=== PATIENT | female | born 1930 | race Asian ===

== ENCOUNTER 2016-06-30 09:39 | Inpatient (IN) | payer MEDICARE, MEDICAID ==
[~2016-06-30] VITALS: Ht 142.2 cm; Wt 50.4 kg
[~2016-06-30 09:39] MED LIST: ACET-784 PO; AMLO-512 PO; ATOR40TA71 PO; AUD NEB; B CO1CAP4 PO; CACARB500 PO; DEXT1DRO8 OU; DSS100 PO; FLUT1BLS PO; FURO-152 PO; HYDR-3965 PO; MECL-111 PO; MOM30 PO; ONDA4 PO; PANT40TA25 PO; VITAD1000 PO
[2016-06-30 10:11] LABS: BASOPHILS # (AUTO) 0.02 K/uL (0.00-0.20); BASOPHILS % (AUTO) 0.2 % (0.0-2.0); EOSINOPHILS % (AUTO) 1.15 % (1.0-6.0); HEMATOCRIT 31.8 % (36-46); HEMOGLOBIN 10.8 g/dL (12.0-16.0); LYMPHOCYTES # (AUTO) 1.8 K/uL (1.0-4.8); LYMPHOCYTES % (AUTO) 19.2 % (22.0-44.0); MEAN CORPUSCULAR HEMOGLOBIN 27.5 pg (26.0-34.0); MEAN CORPUSCULAR HGB CONC 33.9 G/dL (31.0-37.0); MEAN CORPUSCULAR VOLUME 81 fL (80-100); MONOCYTES # (AUTO) 0.5 K/uL (0.1-1.0); MONOCYTES % (AUTO) 5.5 % (2.0-9.0); NEUTROPHILS # (AUTO) 6.7 K/uL (1.8-7.7); PLATELET COUNT (AUTO) 233 K/uL (150-450); RED BLOOD CELL COUNT(AUTO) 3.92 MIL/uL (4.00-5.20); RED CELL DISTRIBUTION WIDTH 16.7 % (11.5-14.5); WHITE BLOOD COUNT (AUTO) 9.1 K/uL (4.5-11.0)
[2016-06-30 10:26] LABS: ALANINE AMINOTRANSFERASE 25 U/L (12-78); ALBUMIN 3.3 g/dL (3.4-5.0); ANION GAP 14 mmol/L (8-16); ASPARTATE AMINOTRANSFERASE 22 U/L (15-37); BILIRUBIN,TOTAL 0.6 mg/dL (0.1-1.0); CALCIUM, TOTAL 9.8 mg/dL (8.8-10.5); CARBON DIOXIDE 26 mmol/L (22-29); CHLORIDE 93 mmol/L (98-107); CREATINE KINASE, TOTAL 44 U/L (26-192); CREATININE 3.08 mg/dL (0.60-1.30); GLOMERULAR FILTR. RATE CALC 14 mL/min (>60); POTASSIUM 3.5 mmol/L (3.5-5.1); SODIUM SERUM 133 mmol/L (136-145); TOTAL PROTEIN, SERUM 9.1 g/dL (6.4-8.2)
[2016-06-30 10:28] LABS: UREA NITROGEN, BLOOD 102 mg/dL (7-18)
[2016-06-30 10:41] LABS: B-TYPE NATRIURETIC PEPTIDE 87 pg/mL (0-100)
[2016-06-30 11:11] LABS: GLUCOSE, URINE (UA) NEGATIVE (NEGATIVE); KETONES,URINE NEGATIVE (NEGATIVE); LEUKOCYTE ESTERASE ,URINE SMALL (NEGATIVE); OCCULT BLOOD,URINE SMALL (NEGATIVE); PROTEIN,URINE SEE CONFIRM (NEGATIVE)
[2016-06-30 11:14] LABS: ADD UA MICROSCOPIC YES; APPEARANCE,URINE HAZY (CLEAR)
[2016-06-30 11:18] LABS: SQUAMOUS EPITHELIAL CELL,UR Rare /LPF (None Seen)
[2016-06-30 11:19] LABS: SULFOSALICYLIC ACID,URINE 3+ (Negative)
[2016-06-30] MEDS ORDERED: ACETAMINOPHEN 325 MG TABLET PO PRN (13:00)
[2016-06-30] MEDS ORDERED: SODIUM CHLORIDE 0.9% 1,000 ML IV ONE (13:45)
[2016-06-30 14:16] LABS: GLUCOSE,POINT OF CARE 86 MG/DL (70-110)
[2016-06-30 14:56] VITALS: BP 133/70
[2016-06-30 15:33] VITALS: BP 130/63
[2016-06-30] MEDS ORDERED: ALBUTEROL SULFATE 2.5 MG/0.5 ML NEB SOLUTION NEB PRN (18:30)
[2016-06-30] MEDS ORDERED: ONDANSETRON HCL 4 MG TABLET PO PRN (18:30)
[2016-06-30] MEDS ORDERED: MAGNESIUM HYDROXIDE SUSPENSION 30 ML UDCUP PO PRN (18:30)
[2016-06-30] MEDS ORDERED: DOCUSATE SODIUM 100 MG CAPSULE PO PRN (18:30)
[2016-06-30] MEDS ORDERED: DEXTRAN 70 0.1%/HYPROMELL 0.3% 0.9 ML OPHTHALMIC SOLUTION [PF] OU PRN (18:30)
[2016-06-30] MEDS ORDERED: HYDROCODONE/ACETAMINOPHEN 5-325 MG TABLET PO PRN (18:30)
[2016-06-30 20:06] VITALS: BP 127/61
[2016-06-30] MEDS: ATORVASTATIN CALCIUM 10 MG TABLET PO SCH (20:38)
[2016-06-30] MEDS: HEPARIN SODIUM,PORCINE 5,000 UNITS/ML VIAL SQ SCH (20:39)
[2016-06-30 22:07] LABS: APPEARANCE,URINE CLOUDY (CLEAR); GLUCOSE, URINE (UA) NEGATIVE (NEGATIVE); KETONES,URINE NEGATIVE (NEGATIVE); LEUKOCYTE ESTERASE ,URINE TRACE (NEGATIVE); OCCULT BLOOD,URINE SMALL (NEGATIVE); PROTEIN,URINE SEE CONFIRM (NEGATIVE)
[2016-06-30 22:19] LABS: RBC,URINE 0-2 /HPF (0-2); WBC,URINE 0-2 /HPF (0-5)
[2016-06-30 22:22] LABS: SULFOSALICYLIC ACID,URINE 2+ (Negative)
[2016-07-01 00:04] VITALS: BP 152/78
[2016-07-01 04:15] VITALS: BP 149/67
[2016-07-01 06:50] LABS: BASOPHILS % (AUTO) 0.2 % (0.0-2.0); EOSINOPHILS % (AUTO) 1.6 % (1.0-6.0); HEMATOCRIT 27.5 % (36-46); LYMPHOCYTES # (AUTO) 1.3 K/uL (1.0-4.8); LYMPHOCYTES % (AUTO) 16.8 % (22.0-44.0); MEAN CORPUSCULAR HEMOGLOBIN 27.3 pg (26.0-34.0); MEAN CORPUSCULAR HGB CONC 32.7 G/dL (31.0-37.0); MEAN CORPUSCULAR VOLUME 84 fL (80-100); MONOCYTES # (AUTO) 0.5 K/uL (0.1-1.0); MONOCYTES % (AUTO) 7.3 % (2.0-9.0); NEUTROPHILS # (AUTO) 5.5 K/uL (1.8-7.7); NEUTROPHILS % (AUTO) 74.1 % (40.0-70.0); PLATELET COUNT (AUTO) 212 K/uL (150-450); RED BLOOD CELL COUNT(AUTO) 3.29 MIL/uL (4.00-5.20); RED CELL DISTRIBUTION WIDTH 16.2 % (11.5-14.5); WHITE BLOOD COUNT (AUTO) 7.4 K/uL (4.5-11.0)
[2016-07-01 07:19] LABS: IRON, SERUM 45 mcg/dL (50-175); TOTAL IRON BINDING CAPACITY 189 mcg/dL (250-450)
[2016-07-01 07:25] LABS: ALANINE AMINOTRANSFERASE 17 U/L (12-78); ALBUMIN 2.8 g/dL (3.4-5.0); ANION GAP 11 mmol/L (8-16); ASPARTATE AMINOTRANSFERASE 17 U/L (15-37); BILIRUBIN,TOTAL 0.6 mg/dL (0.1-1.0); CARBON DIOXIDE 25 mmol/L (22-29); CHLORIDE 99 mmol/L (98-107); CREATINE KINASE, TOTAL 36 U/L (26-192); CREATININE 2.79 mg/dL (0.60-1.30); GLOMERULAR FILTR. RATE CALC 16 mL/min (>60); PHOSPHORUS 5.5 mg/dL (2.5-4.9); POTASSIUM 3.9 mmol/L (3.5-5.1); SODIUM SERUM 135 mmol/L (136-145); THYROID STIMULATING HORMONE 0.44 uIU/mL (0.36-3.74); TOTAL PROTEIN, SERUM 7.6 g/dL (6.4-8.2); UREA NITROGEN, BLOOD 90 mg/dL (7-18)
[2016-07-01 07:42] VITALS: BP 144/73
[2016-07-01] MEDS: VITAMIN B COMP/VIT C/FOLIC ACID CAPSULE PO SCH (08:03)
[2016-07-01] MEDS: PANTOPRAZOLE SODIUM 40 MG DR TABLET PO SCH (08:03)
[2016-07-01] MEDS: FLUTICASONE/VILANTEROL 200-25 MCG/INH INHALER [14] IH SCH (08:03)
[2016-07-01] MEDS: CALCIUM CARBONATE 500 MG CHEWABLE TABLET PO SCH (08:04)
[2016-07-01] MEDS: CHOLECALCIFEROL (VIT D3) 1,000 UNITS TABLET PO SCH (08:04)
[2016-07-01] MEDS: EPOETIN ALFA 10,000 UNITS/ML VIAL SQ SCH (08:05)
[2016-07-01] MEDS: HEPARIN SODIUM,PORCINE 5,000 UNITS/ML VIAL SQ SCH ×2 (08:05→21:09)
[2016-07-01 08:59] LABS: VITAMIN B12 LEVEL 599 pg/mL (211-911)
[2016-07-01] MEDS: SODIUM CHLORIDE 0.9% 1,000 ML IV SCH (09:16)
[2016-07-01 11:35] VITALS: BP 127/66
[2016-07-01 15:07] VITALS: BP 143/69
[2016-07-01] MEDS: ACETAMINOPHEN 325 MG TABLET PO PRN (15:33)
[2016-07-01 19:47] VITALS: BP 142/71
[2016-07-01] MEDS: ATORVASTATIN CALCIUM 10 MG TABLET PO SCH (21:00)
[2016-07-01] MEDS: AmLODIPine BESYLATE 2.5 MG TABLET PO SCH (21:01)
[2016-07-02 00:02] VITALS: BP 149/66
[2016-07-02] MEDS: SODIUM CHLORIDE 0.9% 1,000 ML IV SCH (04:29)
[2016-07-02 05:58] VITALS: BP 142/59
[2016-07-02 06:21] LABS: ALBUMIN 2.6 g/dL (3.4-5.0); BILIRUBIN,TOTAL 0.5 mg/dL (0.1-1.0); CALCIUM, TOTAL 8.4 mg/dL (8.8-10.5); CREATININE 2.7 mg/dL (0.60-1.30); MAGNESIUM 2.1 mg/dL (1.80-2.40); PHOSPHORUS 4.7 mg/dL (2.5-4.9); TOTAL PROTEIN, SERUM 7.2 g/dL (6.4-8.2)
[2016-07-02 06:35] LABS: BASOPHILS % (AUTO) 0.5 % (0.0-2.0); EOSINOPHILS % (AUTO) 0.7 % (1.0-6.0); HEMATOCRIT 25.9 % (36-46); HEMOGLOBIN 8.5 g/dL (12.0-16.0); LYMPHOCYTES # (AUTO) 1.2 K/uL (1.0-4.8); LYMPHOCYTES % (AUTO) 17.2 % (22.0-44.0); MEAN CORPUSCULAR HEMOGLOBIN 27.3 pg (26.0-34.0); MEAN CORPUSCULAR HGB CONC 32.7 G/dL (31.0-37.0); MEAN CORPUSCULAR VOLUME 84 fL (80-100); MONOCYTES # (AUTO) 0.5 K/uL (0.1-1.0); MONOCYTES % (AUTO) 7.4 % (2.0-9.0); NEUTROPHILS # (AUTO) 5.1 K/uL (1.8-7.7); NEUTROPHILS % (AUTO) 74.2 % (40.0-70.0); PLATELET COUNT (AUTO) 200 K/uL (150-450); RED CELL DISTRIBUTION WIDTH 15.8 % (11.5-14.5); WHITE BLOOD COUNT (AUTO) 6.8 K/uL (4.5-11.0)
[2016-07-02 07:50] VITALS: BP 151/68
[2016-07-02] MEDS: FLUTICASONE/VILANTEROL 200-25 MCG/INH INHALER [14] IH SCH (09:49)
[2016-07-02] MEDS: VITAMIN B COMP/VIT C/FOLIC ACID CAPSULE PO SCH (09:50)
[2016-07-02] MEDS: PANTOPRAZOLE SODIUM 40 MG DR TABLET PO SCH (09:51)
[2016-07-02] MEDS: CALCIUM CARBONATE 500 MG CHEWABLE TABLET PO SCH (09:51)
[2016-07-02] MEDS: CHOLECALCIFEROL (VIT D3) 1,000 UNITS TABLET PO SCH (09:52)
[2016-07-02] MEDS: HEPARIN SODIUM,PORCINE 5,000 UNITS/ML VIAL SQ SCH ×2 (09:52→20:42)
[2016-07-02] MEDS: ACETAMINOPHEN 325 MG TABLET PO PRN ×3 (11:00→22:35)
[2016-07-02 11:23] VITALS: BP 125/48
[2016-07-02] MEDS: MUPIROCIN CALCIUM 2% 22 GM OINTMENT NASAL SCH ×2 (11:47→20:42)
[2016-07-02] MEDS: CefTRIAXone 1 GM/DEXTROSE 50 ML IV SCH (11:47)
[2016-07-02 16:05] VITALS: BP 126/61
[2016-07-02 20:00] VITALS: BP 147/62
[2016-07-02] MEDS: AmLODIPine BESYLATE 2.5 MG TABLET PO SCH (20:42)
[2016-07-02] MEDS: ATORVASTATIN CALCIUM 10 MG TABLET PO SCH (20:42)
[2016-07-03 00:15] VITALS: BP 139/67
[2016-07-03] MEDS: SODIUM CHLORIDE 0.9% 1,000 ML IV SCH (00:29)
[2016-07-03 04:59] VITALS: BP 123/67
[2016-07-03 07:14] VITALS: BP 134/64
[2016-07-03 07:50] LABS: BASOPHILS % (AUTO) 0.1 % (0.0-2.0); EOSINOPHILS % (AUTO) 1.5 % (1.0-6.0); HEMATOCRIT 26.3 % (36-46); HEMOGLOBIN 8.6 g/dL (12.0-16.0); LYMPHOCYTES # (AUTO) 0.9 K/uL (1.0-4.8); LYMPHOCYTES % (AUTO) 12.5 % (22.0-44.0); MEAN CORPUSCULAR HEMOGLOBIN 27.1 pg (26.0-34.0); MEAN CORPUSCULAR HGB CONC 32.6 G/dL (31.0-37.0); MEAN CORPUSCULAR VOLUME 83 fL (80-100); MONOCYTES # (AUTO) 0.4 K/uL (0.1-1.0); NEUTROPHILS # (AUTO) 5.7 K/uL (1.8-7.7); NEUTROPHILS % (AUTO) 80.9 % (40.0-70.0); PLATELET COUNT (AUTO) 195 K/uL (150-450); RED BLOOD CELL COUNT(AUTO) 3.16 MIL/uL (4.00-5.20); RED CELL DISTRIBUTION WIDTH 15.9 % (11.5-14.5); WHITE BLOOD COUNT (AUTO) 7.1 K/uL (4.5-11.0)
[2016-07-03 08:19] LABS: ALBUMIN 2.5 g/dL (3.4-5.0); BILIRUBIN,TOTAL 0.3 mg/dL (0.1-1.0); CALCIUM, TOTAL 8.8 mg/dL (8.8-10.5); CREATININE 2.5 mg/dL (0.60-1.30); MAGNESIUM 2.1 mg/dL (1.80-2.40); POTASSIUM 3.9 mmol/L (3.5-5.1); TOTAL PROTEIN, SERUM 7.3 g/dL (6.4-8.2)
[2016-07-03] MEDS: FLUTICASONE/VILANTEROL 200-25 MCG/INH INHALER [14] IH SCH (08:31)
[2016-07-03] MEDS: CALCIUM CARBONATE 500 MG CHEWABLE TABLET PO SCH (08:32)
[2016-07-03] MEDS: CHOLECALCIFEROL (VIT D3) 1,000 UNITS TABLET PO SCH (08:32)
[2016-07-03] MEDS: ACETAMINOPHEN 325 MG TABLET PO PRN (08:32)
[2016-07-03] MEDS: PANTOPRAZOLE SODIUM 40 MG DR TABLET PO SCH (08:32)
[2016-07-03] MEDS: MUPIROCIN CALCIUM 2% 22 GM OINTMENT NASAL SCH (08:32)
[2016-07-03] MEDS: VITAMIN B COMP/VIT C/FOLIC ACID CAPSULE PO SCH (08:32)
[2016-07-03] MEDS: HEPARIN SODIUM,PORCINE 5,000 UNITS/ML VIAL SQ SCH (08:33)
[2016-07-03] MEDS: EPOETIN ALFA 10,000 UNITS/ML VIAL SQ SCH (08:33)
[2016-07-03] MEDS ORDERED: DOCUSATE SODIUM 100 MG CAPSULE PO SCH (09:00)
[2016-07-03 10:58] VITALS: BP 132/63
[2016-07-03] MEDS: CefTRIAXone 1 GM/DEXTROSE 50 ML IV SCH (11:38)
[2016-07-03] MEDS ORDERED: CEFX1I IV (12:27)
[2016-07-03] MEDS ORDERED: PANT40TA25 PO (12:29)
[2016-07-03] MEDS ORDERED: FOLI1CAP2 PO (12:30)
[2016-07-03] MEDS ORDERED: MUPI1OIN5 NASAL (12:30)
[2016-07-03] MEDS ORDERED: EPOE4000 SQ (12:34)
[2016-07-03] MEDS ORDERED: ATORVASTATIN CALCIUM 10 MG TABLET PO SCH (21:00)
== END 2016-07-03 15:30 | DRG 682 ==
LOC: EMS 09:41 → 5S 12:58
PROVIDERS: ADMIT Internal Medicine Geriatric Medicine; ATTEND Internal Medicine Geriatric Medicine
DX: N17.9 Acute kidney failure, unspecified (principal); E43 Unspecified severe protein-calorie malnutrition; N39.0 Urinary tract infection, site not specified; S12.110A Anterior displaced Type II dens fracture, initial encounter for closed fracture; E87.1 Hypo-osmolality and hyponatremia; J84.10 Pulmonary fibrosis, unspecified; E86.0 Dehydration; J45.909 Unspecified asthma, uncomplicated; I95.1 Orthostatic hypotension; D64.9 Anemia, unspecified; J44.9 Chronic obstructive pulmonary disease, unspecified; H40.9 Unspecified glaucoma; M10.9 Gout, unspecified; I12.9 Hypertensive chronic kidney disease with stage 1 through stage 4 chronic kidney disease, or unspecified chronic kidney disease; E78.5 Hyperlipidemia, unspecified; I25.10 Atherosclerotic heart disease of native coronary artery without angina pectoris; E11.22 Type 2 diabetes mellitus with diabetic chronic kidney disease; E03.9 Hypothyroidism, unspecified; I49.5 Sick sinus syndrome; M06.9 Rheumatoid arthritis, unspecified; E55.9 Vitamin D deficiency, unspecified; M47.9 Spondylosis, unspecified; N18.4 Chronic kidney disease, stage 4 (severe); W19.XXXA Unspecified fall, initial encounter; B96.20 Unspecified Escherichia coli [E. coli] as the cause of diseases classified elsewhere; Z95.0 Presence of cardiac pacemaker; Z98.61 Coronary angioplasty status; Z88.0 Allergy status to penicillin; Z22.322 Carrier or suspected carrier of Methicillin resistant Staphylococcus aureus; Z86.73 Personal history of transient ischemic attack (TIA), and cerebral infarction without residual deficits; Z90.49 Acquired absence of other specified parts of digestive tract; Z68.24 Body mass index [BMI] 24.0-24.9, adult; Z91.81 History of falling; Y93.89 Activity, other specified; Y92.89 Other specified places as the place of occurrence of the external cause; Y99.8 Other external cause status
CPT/HCPCS: 51701; 70450; 72125; 76770; 82306; 82570; 82607; 82746; 82962; 83036; 83540; 83550; 83735; 84100; 84300; 84439; 84443; 84540; 87081; 87086; 93005; 93306; 96360; 97161; 99285; J0696; J0885; J1644; J7030

== ENCOUNTER 2016-11-04 12:35 | Inpatient (IN) | payer MEDICARE, MEDICAID ==
[~2016-11-04] VITALS: Ht 142.2 cm; Wt 49.5 kg
[~2016-11-04 12:35] MED LIST changes: -ACET-784 PO; -ATOR40TA71 PO; +BISA10S PR; -FURO-152 PO; -HYDR-3965 PO; +IPRNEB IH; +MACR100 PO; +MUPI1OIN5 NASAL; +NACL1 PO; -ONDA4 PO; +ZOLP5 PO
[2016-11-04 12:52] LABS: GLUCOSE,POINT OF CARE 120 MG/DL (70-110)
[2016-11-04] MEDS ORDERED: HYDR-309 PO (12:56)
[2016-11-04] MEDS ORDERED: ATOR10TA84 PO (12:58)
[2016-11-04] MEDS ORDERED: ONDA4 PO (12:58)
[2016-11-04] MEDS ORDERED: ACET325C PO (12:58)
[2016-11-04] MEDS ORDERED: FURO20 PO (12:59)
[2016-11-04 13:47] LABS: HEMATOCRIT 27.9 % (36-46); HEMOGLOBIN 9.1 g/dL (12.0-16.0); MEAN CORPUSCULAR HEMOGLOBIN 25.4 pg (26.0-34.0); MEAN CORPUSCULAR HGB CONC 32.6 G/dL (31.0-37.0); MEAN CORPUSCULAR VOLUME 78 fL (80-100); PLATELET COUNT (AUTO) 250 K/uL (150-450); RED BLOOD CELL COUNT(AUTO) 3.58 MIL/uL (4.00-5.20); RED CELL DISTRIBUTION WIDTH 20.5 % (11.5-14.5); WHITE BLOOD COUNT (AUTO) 3.9 K/uL (4.5-11.0)
[2016-11-04 13:58] LABS: ALANINE AMINOTRANSFERASE 24 U/L (12-78); ALBUMIN 2.5 g/dL (3.4-5.0); ANION GAP 14 mmol/L (8-16); ASPARTATE AMINOTRANSFERASE 23 U/L (15-37); BILIRUBIN,TOTAL 0.3 mg/dL (0.1-1.0); CALCIUM, TOTAL 8.8 mg/dL (8.8-10.5); CARBON DIOXIDE 16 mmol/L (22-29); CHLORIDE 91 mmol/L (98-107); CREATINE KINASE, TOTAL 50 U/L (26-192); CREATININE 4.18 mg/dL (0.60-1.30); GLOMERULAR FILTR. RATE CALC 10 mL/min (>60); POTASSIUM 5.2 mmol/L (3.5-5.1); UREA NITROGEN, BLOOD 64 mg/dL (7-18)
[2016-11-04 14:02] LABS: SODIUM SERUM 121 mmol/L (136-145)
[2016-11-04 14:19] LABS: B-TYPE NATRIURETIC PEPTIDE 541 pg/mL (0-100)
[2016-11-04 14:27] LABS: LYMPHOCYTES % (MANUAL) 17 % (22-44); RBC MORPHOLOGY COMMENT ABNORMAL R; TOTAL CELLS COUNTED 100
[2016-11-04] MEDS ORDERED: ACETAMINOPHEN 325 MG TABLET PO PRN (15:30)
[2016-11-04] MEDS ORDERED: FUROSEMIDE 40 MG/4 ML VIAL IVP ONE (15:30)
[2016-11-04] MEDS ORDERED: ONDANSETRON HCL 4 MG/2 ML VIAL IVP PRN (15:30)
[2016-11-04 16:24] VITALS: BP 130/57
[2016-11-04 16:35] VITALS: BP 130/57
[2016-11-04 19:31] VITALS: BP 134/59
[2016-11-04] MEDS: SODIUM BICARBONATE 650 MG TABLET PO SCH (21:24)
[2016-11-04] MEDS: BUMETANIDE 0.25 MG/ML 4 ML VIAL IVP SCH (21:24)
[2016-11-04] MEDS: EPOETIN ALFA 10,000 UNITS/ML VIAL SQ SCH (21:28)
[2016-11-04 23:04] VITALS: BP 131/52
[2016-11-04] MEDS ORDERED: ZOLPIDEM TARTRATE 5 MG TABLET PO PRN (23:45)
[2016-11-04] MEDS ORDERED: MECLIZINE HCL 25 MG TABLET PO PRN (23:45)
[2016-11-04] MEDS ORDERED: MAGNESIUM HYDROXIDE SUSPENSION 30 ML UDCUP PO PRN (23:45)
[2016-11-04] MEDS ORDERED: ONDANSETRON HCL 4 MG TABLET PO PRN (23:45)
[2016-11-04] MEDS ORDERED: DOCUSATE SODIUM 100 MG CAPSULE PO PRN (23:45)
[2016-11-04] MEDS ORDERED: BISACODYL 10 MG RECTAL RECTAL SUPPOSITORY PR PRN (23:45)
[2016-11-05 04:44] VITALS: BP 134/60
[2016-11-05 06:28] LABS: CALCIUM, TOTAL 8.8 mg/dL (8.8-10.5); CREATININE 4.35 mg/dL (0.60-1.30); MAGNESIUM 2.3 mg/dL (1.80-2.40); PHOSPHORUS 8.1 mg/dL (2.5-4.9); POTASSIUM 5.1 mmol/L (3.5-5.1); THYROID STIMULATING HORMONE 1.6 uIU/mL (0.36-3.74)
[2016-11-05 06:29] LABS: HEMOGLOBIN A1C 6.1 % (4.5-6.2)
[2016-11-05 08:18] VITALS: BP 130/48
[2016-11-05] MEDS: BUMETANIDE 0.25 MG/ML 4 ML VIAL IVP SCH ×2 (09:04→20:04)
[2016-11-05] MEDS: FLUTICASONE/VILANTEROL 200-25 MCG/INH INHALER [14] IH SCH (09:04)
[2016-11-05] MEDS: PANTOPRAZOLE SODIUM 40 MG DR TABLET PO SCH (09:06)
[2016-11-05] MEDS: DEXTRAN 70 0.1%/HYPROMELL 0.3% 0.9 ML OPHTHALMIC SOLUTION [PF] OU SCH ×4 (09:06→20:04)
[2016-11-05] MEDS: AmLODIPine BESYLATE 10 MG TABLET PO SCH (09:07)
[2016-11-05] MEDS: VITAMIN B COMP/VIT C/FOLIC ACID CAPSULE PO SCH (09:07)
[2016-11-05] MEDS: SODIUM BICARBONATE 650 MG TABLET PO SCH ×3 (09:07→20:04)
[2016-11-05] MEDS: CHOLECALCIFEROL (VIT D3) 1,000 UNITS TABLET PO SCH (09:07)
[2016-11-05] MEDS: HEPARIN SODIUM,PORCINE 5,000 UNITS/ML VIAL SQ SCH ×2 (09:13→20:04)
[2016-11-05 11:19] VITALS: BP 141/55
[2016-11-05] MEDS: SEVELAMER CARBONATE 800 MG TABLET PO SCH ×2 (12:44→18:19)
[2016-11-05 12:45] LABS: VITAMIN B12 LEVEL 895 pg/mL (211-911)
[2016-11-05 16:01] VITALS: BP 122/53
[2016-11-05] MEDS: GuaiFENesin/D-METHORPHAN [SUGAR-FREE] 200-20MG/10 ML SYRUP UDCUP PO PRN (16:21)
[2016-11-05] MEDS: IPRATROPIUM BROMIDE 0.5 MG/2.5 ML NEB SOLUTION NEB PRN (18:44)
[2016-11-05] MEDS: ALBUTEROL SULFATE 2.5 MG/0.5 ML NEB SOLUTION NEB PRN (18:44)
[2016-11-05 19:52] VITALS: BP 128/53
[2016-11-05] MEDS: BUDESONIDE 0.5 MG/2 ML NEB SOLUTION NEB SCH (20:45)
[2016-11-05 20:53] LABS: GLUCOSE,POINT OF CARE 128 MG/DL (70-110)
[2016-11-05 20:53] LABS: GLUCOSE,POINT OF CARE 105 MG/DL (70-110)
[2016-11-05 20:53] LABS: GLUCOSE,POINT OF CARE 96 MG/DL (70-110)
[2016-11-05 22:53] LABS: GLUCOSE,POINT OF CARE 124 MG/DL (70-110)
[2016-11-05 22:53] LABS: GLUCOSE COMMENT 1 Received Meds; GLUCOSE,POINT OF CARE 168 MG/DL (70-110)
[2016-11-06 00:10] VITALS: BP 144/64
[2016-11-06 04:21] VITALS: BP 116/61
[2016-11-06 07:32] LABS: CALCIUM, TOTAL 8.6 mg/dL (8.8-10.5); CREATININE 4.54 mg/dL (0.60-1.30); POTASSIUM 4.9 mmol/L (3.5-5.1)
[2016-11-06 07:38] LABS: GLUCOSE,POINT OF CARE 85 MG/DL (70-110)
[2016-11-06 08:08] VITALS: BP 135/57
[2016-11-06] MEDS: BUDESONIDE 0.5 MG/2 ML NEB SOLUTION NEB SCH ×2 (08:45→20:53)
[2016-11-06] MEDS: ALBUTEROL SULFATE 2.5 MG/0.5 ML NEB SOLUTION NEB PRN ×3 (08:45→17:52)
[2016-11-06] MEDS: IPRATROPIUM BROMIDE 0.5 MG/2.5 ML NEB SOLUTION NEB PRN ×3 (08:45→17:52)
[2016-11-06] MEDS: BUMETANIDE 0.25 MG/ML 4 ML VIAL IVP SCH (09:00)
[2016-11-06] MEDS: FLUTICASONE/VILANTEROL 200-25 MCG/INH INHALER [14] IH SCH (10:01)
[2016-11-06] MEDS: DEXTRAN 70 0.1%/HYPROMELL 0.3% 0.9 ML OPHTHALMIC SOLUTION [PF] OU SCH ×4 (10:01→20:06)
[2016-11-06] MEDS: CHOLECALCIFEROL (VIT D3) 1,000 UNITS TABLET PO SCH (10:02)
[2016-11-06] MEDS: SODIUM BICARBONATE 650 MG TABLET PO SCH ×3 (10:02→20:06)
[2016-11-06] MEDS: AmLODIPine BESYLATE 10 MG TABLET PO SCH (10:02)
[2016-11-06] MEDS: PANTOPRAZOLE SODIUM 40 MG DR TABLET PO SCH (10:02)
[2016-11-06] MEDS: HEPARIN SODIUM,PORCINE 5,000 UNITS/ML VIAL SQ SCH ×2 (10:02→20:07)
[2016-11-06] MEDS: VITAMIN B COMP/VIT C/FOLIC ACID CAPSULE PO SCH (10:02)
[2016-11-06] MEDS: SEVELAMER CARBONATE 800 MG TABLET PO SCH ×3 (10:20→19:00)
[2016-11-06 12:04] VITALS: BP 132/53
[2016-11-06] MEDS: ACETAMINOPHEN 325 MG TABLET PO PRN ×2 (12:38→16:57)
[2016-11-06] MEDS ORDERED: SODIUM CHLORIDE 0.9% 250 ML IV ONE (13:51)
[2016-11-06] MEDS: ALBUMIN HUMAN 25%-25GM/100ML 100 ML IV SCH ×2 (14:00→23:06)
[2016-11-06 16:31] VITALS: BP 111/45
[2016-11-06 19:18] VITALS: BP 133/46
[2016-11-06 19:28] LABS: GLUCOSE COMMENT 1 Received Meds; GLUCOSE,POINT OF CARE 134 MG/DL (70-110)
[2016-11-07] MEDS: ACETAMINOPHEN 325 MG TABLET PO PRN (01:19)
[2016-11-07] MEDS: GuaiFENesin/D-METHORPHAN [SUGAR-FREE] 200-20MG/10 ML SYRUP UDCUP PO PRN (01:19)
[2016-11-07 04:41] VITALS: BP 129/55
[2016-11-07] MEDS: ALBUTEROL SULFATE 2.5 MG/0.5 ML NEB SOLUTION NEB PRN ×2 (04:46→22:12)
[2016-11-07] MEDS: IPRATROPIUM BROMIDE 0.5 MG/2.5 ML NEB SOLUTION NEB PRN ×2 (04:46→22:12)
[2016-11-07 06:28] LABS: CALCIUM, TOTAL 8.5 mg/dL (8.8-10.5); CREATININE 4.39 mg/dL (0.60-1.30); POTASSIUM 4.5 mmol/L (3.5-5.1)
[2016-11-07] MEDS ORDERED: 0.9% SODIUM CHLORIDE 5 ML NEB SOLUTION NEB ONE ×2 (07:35→22:07)
[2016-11-07 08:07] VITALS: BP 126/53
[2016-11-07] MEDS: PANTOPRAZOLE SODIUM 40 MG DR TABLET PO SCH (08:41)
[2016-11-07] MEDS: VITAMIN B COMP/VIT C/FOLIC ACID CAPSULE PO SCH (08:42)
[2016-11-07] MEDS: CHOLECALCIFEROL (VIT D3) 1,000 UNITS TABLET PO SCH (08:42)
[2016-11-07] MEDS: AmLODIPine BESYLATE 10 MG TABLET PO SCH (08:42)
[2016-11-07] MEDS: HEPARIN SODIUM,PORCINE 5,000 UNITS/ML VIAL SQ SCH ×2 (08:43→20:03)
[2016-11-07] MEDS: SODIUM BICARBONATE 650 MG TABLET PO SCH ×3 (08:43→20:04)
[2016-11-07] MEDS: DEXTRAN 70 0.1%/HYPROMELL 0.3% 0.9 ML OPHTHALMIC SOLUTION [PF] OU SCH ×4 (08:44→21:46)
[2016-11-07] MEDS: SEVELAMER CARBONATE 800 MG TABLET PO SCH ×3 (08:45→18:00)
[2016-11-07] MEDS: BUDESONIDE 0.5 MG/2 ML NEB SOLUTION NEB SCH ×2 (09:36→21:09)
[2016-11-07] MEDS: OXYGEN THERAPY IH SCH ×2 (09:52→21:08)
[2016-11-07 12:09] VITALS: BP 133/46
[2016-11-07 16:03] VITALS: BP 142/54
[2016-11-07 20:07] VITALS: BP 137/71
[2016-11-08 06:51] VITALS: BP 134/55
[2016-11-08] MEDS: BUDESONIDE 0.5 MG/2 ML NEB SOLUTION NEB SCH ×2 (07:11→20:04)
[2016-11-08] MEDS: IPRATROPIUM BROMIDE 0.5 MG/2.5 ML NEB SOLUTION NEB PRN ×2 (07:11→20:04)
[2016-11-08] MEDS: ALBUTEROL SULFATE 2.5 MG/0.5 ML NEB SOLUTION NEB PRN ×2 (07:12→20:04)
[2016-11-08 07:31] LABS: HEMATOCRIT 24.8 % (36-46); HEMOGLOBIN 8.3 g/dL (12.0-16.0); MEAN CORPUSCULAR HGB CONC 33.4 G/dL (31.0-37.0); MEAN CORPUSCULAR VOLUME 78 fL (80-100); PLATELET COUNT (AUTO) 225 K/uL (150-450); RED BLOOD CELL COUNT(AUTO) 3.19 MIL/uL (4.00-5.20); RED CELL DISTRIBUTION WIDTH 20.6 % (11.5-14.5); WHITE BLOOD COUNT (AUTO) 7.3 K/uL (4.5-11.0)
[2016-11-08 07:38] LABS: CALCIUM, TOTAL 8.7 mg/dL (8.8-10.5); CREATININE 4.59 mg/dL (0.60-1.30); POTASSIUM 4.9 mmol/L (3.5-5.1)
[2016-11-08] MEDS: SEVELAMER CARBONATE 800 MG TABLET PO SCH ×3 (08:00→18:46)
[2016-11-08] MEDS: SODIUM BICARBONATE 650 MG TABLET PO SCH ×3 (08:59→20:02)
[2016-11-08] MEDS: CHOLECALCIFEROL (VIT D3) 1,000 UNITS TABLET PO SCH (08:59)
[2016-11-08] MEDS: VITAMIN B COMP/VIT C/FOLIC ACID CAPSULE PO SCH ×2 (09:00→10:45)
[2016-11-08] MEDS: HEPARIN SODIUM,PORCINE 5,000 UNITS/ML VIAL SQ SCH ×2 (09:00→20:02)
[2016-11-08] MEDS: AmLODIPine BESYLATE 10 MG TABLET PO SCH (09:00)
[2016-11-08] MEDS: PANTOPRAZOLE SODIUM 40 MG DR TABLET PO SCH (09:00)
[2016-11-08] MEDS: OXYGEN THERAPY IH SCH ×2 (09:04→20:04)
[2016-11-08] MEDS: DEXTRAN 70 0.1%/HYPROMELL 0.3% 0.9 ML OPHTHALMIC SOLUTION [PF] OU SCH ×4 (09:04→21:00)
[2016-11-08 09:27] LABS: PROTHROMBIN TIME 10.6 SEC (9.4-11.6)
[2016-11-08 10:07] LABS: BAND NEUTROPHILS % (MANUAL) 1 % (1-5); LYMPHOCYTES % (MANUAL) 16 % (22-44); TOTAL CELLS COUNTED 100
[2016-11-08 10:09] LABS: RBC MORPHOLOGY COMMENT ABNORMAL R
[2016-11-08 12:16] VITALS: BP 124/73
[2016-11-08] MEDS ORDERED: MANNITOL 25%-12.5 GM/50 ML VIAL IVP PRN (15:15)
[2016-11-08] MEDS ORDERED: ALBUMIN HUMAN 25%-12.5GM/50ML IV BOTTLE IV PRN (15:15)
[2016-11-08] MEDS: ACETAMINOPHEN 325 MG TABLET PO PRN (20:03)
[2016-11-08 20:43] VITALS: BP 129/63
[2016-11-08 23:08] VITALS: BP 115/62
[2016-11-09] VITALS (10 sets, daily range): BP systolic 108–134; BP diastolic 32–75
[2016-11-09] MEDS: ACETAMINOPHEN 325 MG TABLET PO PRN ×2 (03:06→20:23)
[2016-11-09 06:36] LABS: CALCIUM, TOTAL 8.6 mg/dL (8.8-10.5); CREATININE 3.1 mg/dL (0.60-1.30); MAGNESIUM 2.1 mg/dL (1.80-2.40); POTASSIUM 4.2 mmol/L (3.5-5.1)
[2016-11-09] MEDS: OXYGEN THERAPY IH SCH ×2 (08:12→20:23)
[2016-11-09] MEDS: PANTOPRAZOLE SODIUM 40 MG DR TABLET PO SCH (08:12)
[2016-11-09] MEDS: SEVELAMER CARBONATE 800 MG TABLET PO SCH ×3 (08:12→17:55)
[2016-11-09] MEDS: HEPARIN SODIUM,PORCINE 5,000 UNITS/ML VIAL SQ SCH (08:13)
[2016-11-09] MEDS: CHOLECALCIFEROL (VIT D3) 1,000 UNITS TABLET PO SCH (08:13)
[2016-11-09] MEDS ORDERED: HEPARIN SODIUM 25000 UNITS/D5W 250 ML IV PRN (08:21)
[2016-11-09] MEDS ORDERED: HEPARIN SODIUM,PORCINE 5,000 UNITS/ML VIAL IVP ONE (08:30)
[2016-11-09] MEDS ORDERED: HEPARIN SODIUM,PORCINE 5,000 UNITS/ML VIAL IVP PRN ×2 (08:30)
[2016-11-09] MEDS ORDERED: FUROSEMIDE 40 MG/4 ML VIAL IVP ONE (08:30)
[2016-11-09] MEDS: SODIUM BICARBONATE 650 MG TABLET PO SCH ×3 (08:44→22:44)
[2016-11-09] MEDS: NITROGLYCERIN 2% (1 GM=INCH) PACKET TP SCH ×4 (08:44→23:57)
[2016-11-09] MEDS: AmLODIPine BESYLATE 10 MG TABLET PO SCH (08:51)
[2016-11-09] MEDS: DEXTRAN 70 0.1%/HYPROMELL 0.3% 0.9 ML OPHTHALMIC SOLUTION [PF] OU SCH ×4 (08:57→20:23)
[2016-11-09] MEDS: VITAMIN B COMP/VIT C/FOLIC ACID CAPSULE PO SCH ×2 (09:00)
[2016-11-09] MEDS: BUDESONIDE 0.5 MG/2 ML NEB SOLUTION NEB SCH ×2 (09:00→19:57)
[2016-11-09 09:08] LABS: INR 1.1 (0.9-1.1); PROTHROMBIN TIME 11.4 SEC (9.4-11.6)
[2016-11-09] MEDS: ASPIRIN 81 MG CHEWABLE TABLET PO SCH (10:49)
[2016-11-09] MEDS: MORPHINE SULFATE 2 MG/ML SYRINGE IVP PRN (13:23)
[2016-11-09] MEDS: PRAVASTATIN SODIUM 20 MG TABLET PO SCH (15:00)
[2016-11-09 16:56] LABS: CREATINE KINASE MB 61.7 ng/mL (0-5)
[2016-11-09] MEDS: GuaiFENesin/D-METHORPHAN [SUGAR-FREE] 200-20MG/10 ML SYRUP UDCUP PO PRN (17:56)
[2016-11-09] MEDS: ALBUTEROL SULFATE 2.5 MG/0.5 ML NEB SOLUTION NEB PRN (19:57)
[2016-11-09] MEDS: IPRATROPIUM BROMIDE 0.5 MG/2.5 ML NEB SOLUTION NEB PRN (19:57)
[2016-11-09] MEDS ORDERED: METOPROLOL TARTRATE 25 MG TABLET PO SCH (21:00)
[2016-11-09] MEDS ORDERED: AmLODIPine BESYLATE 5 MG TABLET PO SCH (21:00)
[2016-11-10] VITALS (16 sets, daily range): BP systolic 89–141; BP diastolic 46–87
[2016-11-10 05:15] LABS: HEMATOCRIT 26.5 % (36-46); HEMOGLOBIN 8.8 g/dL (12.0-16.0); MEAN CORPUSCULAR HEMOGLOBIN 25.7 pg (26.0-34.0); MEAN CORPUSCULAR HGB CONC 33.1 G/dL (31.0-37.0); MEAN CORPUSCULAR VOLUME 78 fL (80-100); PLATELET COUNT (AUTO) 269 K/uL (150-450); RED BLOOD CELL COUNT(AUTO) 3.41 MIL/uL (4.00-5.20); RED CELL DISTRIBUTION WIDTH 21.4 % (11.5-14.5); WHITE BLOOD COUNT (AUTO) 10.6 K/uL (4.5-11.0)
[2016-11-10] MEDS: NITROGLYCERIN 2% (1 GM=INCH) PACKET TP SCH ×3 (05:36→18:00)
[2016-11-10 05:37] LABS: ALBUMIN 2.8 g/dL (3.4-5.0); BILIRUBIN,TOTAL 0.7 mg/dL (0.1-1.0); CALCIUM, TOTAL 9.6 mg/dL (8.8-10.5); CREATINE KINASE MB 27.7 ng/mL (0-5); CREATININE 3.13 mg/dL (0.60-1.30); POTASSIUM 4.3 mmol/L (3.5-5.1); TOTAL PROTEIN, SERUM 7.3 g/dL (6.4-8.2)
[2016-11-10] MEDS: BUDESONIDE 0.5 MG/2 ML NEB SOLUTION NEB SCH ×2 (07:41→21:20)
[2016-11-10] MEDS: OXYGEN THERAPY IH SCH ×2 (07:41→21:12)
[2016-11-10 08:03] LABS: LYMPHOCYTES % (MANUAL) 17 % (22-44); TOTAL CELLS COUNTED 100
[2016-11-10 08:04] LABS: RBC MORPHOLOGY COMMENT ABNORMAL R
[2016-11-10] MEDS: SEVELAMER CARBONATE 800 MG TABLET PO SCH ×3 (08:41→18:14)
[2016-11-10] MEDS: ASPIRIN 81 MG CHEWABLE TABLET PO SCH (08:42)
[2016-11-10] MEDS: VITAMIN B COMP/VIT C/FOLIC ACID CAPSULE PO SCH (08:42)
[2016-11-10] MEDS: PRAVASTATIN SODIUM 20 MG TABLET PO SCH (08:43)
[2016-11-10] MEDS: SODIUM BICARBONATE 650 MG TABLET PO SCH (08:44)
[2016-11-10] MEDS: CHOLECALCIFEROL (VIT D3) 1,000 UNITS TABLET PO SCH (08:55)
[2016-11-10] MEDS: PANTOPRAZOLE SODIUM 40 MG DR TABLET PO SCH (08:55)
[2016-11-10] MEDS: METOPROLOL TARTRATE 25 MG TABLET PO SCH ×2 (12:00→18:00)
[2016-11-10] MEDS ORDERED: IOHEXOL 300 MG/ML 150 ML VIAL ONE (12:01)
[2016-11-10] MEDS ORDERED: HEPARIN SODIUM 1000 UNITS/NS 1,000 ML ONE (12:01)
[2016-11-10] MEDS ORDERED: LIDOCAINE HCL/PF 1% 30 ML VIAL ONE (12:01)
[2016-11-10] MEDS: DEXTRAN 70 0.1%/HYPROMELL 0.3% 0.9 ML OPHTHALMIC SOLUTION [PF] OU SCH ×3 (13:00→16:30)
[2016-11-10] MEDS ORDERED: IOHEXOL 300 MG/ML 100 ML VIAL ONE (13:03)
[2016-11-10] MEDS ORDERED: HEPARIN SODIUM 1000 UNITS/NS 1,000 ML IARTER ONE (13:09)
[2016-11-10] MEDS ORDERED: SODIUM CHLORIDE 0.9% 500 ML IV ONE (13:09)
[2016-11-10] MEDS ORDERED: LIDOCAINE HCL/PF 1% 30 ML VIAL INJ ONE (13:15)
[2016-11-10] MEDS ORDERED: IOHEXOL 300 MG/ML 150 ML VIAL IARTER ONE (13:15)
[2016-11-10 14:38] LABS: HEPATITIS Bs ANTIGEN SCREEN P Negative (Negative)
[2016-11-11] VITALS (9 sets, daily range): BP systolic 100–135; BP diastolic 55–70
[2016-11-11] MEDS: NITROGLYCERIN 2% (1 GM=INCH) PACKET TP SCH ×5 (00:13→23:37)
[2016-11-11] MEDS: DEXTRAN 70 0.1%/HYPROMELL 0.3% 0.9 ML OPHTHALMIC SOLUTION [PF] OU SCH ×5 (01:07→21:32)
[2016-11-11] MEDS: METOPROLOL TARTRATE 25 MG TABLET PO SCH ×6 (01:39→23:37)
[2016-11-11 06:36] LABS: ALBUMIN 2.6 g/dL (3.4-5.0); BILIRUBIN,TOTAL 0.6 mg/dL (0.1-1.0); CALCIUM, TOTAL 8.9 mg/dL (8.8-10.5); CREATININE 1.85 mg/dL (0.60-1.30); MAGNESIUM 1.6 mg/dL (1.80-2.40); POTASSIUM 3.6 mmol/L (3.5-5.1)
[2016-11-11 06:44] LABS: HEMATOCRIT 26.5 % (36-46); HEMOGLOBIN 8.6 g/dL (12.0-16.0); MEAN CORPUSCULAR HEMOGLOBIN 25.6 pg (26.0-34.0); MEAN CORPUSCULAR HGB CONC 32.5 G/dL (31.0-37.0); MEAN CORPUSCULAR VOLUME 79 fL (80-100); PLATELET COUNT (AUTO) 262 K/uL (150-450); RED BLOOD CELL COUNT(AUTO) 3.36 MIL/uL (4.00-5.20); RED CELL DISTRIBUTION WIDTH 21.4 % (11.5-14.5); WHITE BLOOD COUNT (AUTO) 5.4 K/uL (4.5-11.0)
[2016-11-11] MEDS: BUDESONIDE 0.5 MG/2 ML NEB SOLUTION NEB SCH ×2 (07:36→21:15)
[2016-11-11] MEDS: SEVELAMER CARBONATE 800 MG TABLET PO SCH ×3 (07:58→18:16)
[2016-11-11] MEDS: VITAMIN B COMP/VIT C/FOLIC ACID CAPSULE PO SCH (07:58)
[2016-11-11] MEDS: PANTOPRAZOLE SODIUM 40 MG DR TABLET PO SCH (07:59)
[2016-11-11] MEDS: ASPIRIN 81 MG CHEWABLE TABLET PO SCH (07:59)
[2016-11-11] MEDS: EPOETIN ALFA 10,000 UNITS/ML VIAL SQ SCH (07:59)
[2016-11-11] MEDS: OXYGEN THERAPY IH SCH ×2 (08:27→21:32)
[2016-11-11 08:38] LABS: BAND NEUTROPHILS % (MANUAL) 1 % (1-5); TOTAL CELLS COUNTED 100
[2016-11-11] MEDS: CLOPIDOGREL BISULFATE 75 MG TABLET PO SCH (08:50)
[2016-11-11] MEDS: PRAVASTATIN SODIUM 40 MG TABLET PO SCH (08:51)
[2016-11-11] MEDS: CHOLECALCIFEROL (VIT D3) 1,000 UNITS TABLET PO SCH (08:51)
[2016-11-11 09:13] LABS: EOSINOPHILS % (MANUAL) 4 % (1-6); LYMPHOCYTES % (MANUAL) 13 % (22-44); RBC MORPHOLOGY COMMENT ABNORMAL RBC MORPH
[2016-11-11] MEDS: VALSARTAN 40 MG TABLET PO SCH ×2 (12:19→21:32)
[2016-11-12 04:48] VITALS: BP 108/55
[2016-11-12] MEDS: NITROGLYCERIN 2% (1 GM=INCH) PACKET TP SCH ×3 (05:24→18:14)
[2016-11-12] MEDS: METOPROLOL TARTRATE 25 MG TABLET PO SCH ×3 (05:28→18:00)
[2016-11-12 06:48] LABS: HEMATOCRIT 26.1 % (36-46); HEMOGLOBIN 8.4 g/dL (12.0-16.0); MEAN CORPUSCULAR HEMOGLOBIN 25.5 pg (26.0-34.0); MEAN CORPUSCULAR HGB CONC 32.4 G/dL (31.0-37.0); MEAN CORPUSCULAR VOLUME 79 fL (80-100); PLATELET COUNT (AUTO) 240 K/uL (150-450); RED BLOOD CELL COUNT(AUTO) 3.31 MIL/uL (4.00-5.20); RED CELL DISTRIBUTION WIDTH 20.8 % (11.5-14.5); WHITE BLOOD COUNT (AUTO) 4.8 K/uL (4.5-11.0)
[2016-11-12 07:07] LABS: ALBUMIN 2.6 g/dL (3.4-5.0); BILIRUBIN,TOTAL 0.5 mg/dL (0.1-1.0); CREATININE 3.19 mg/dL (0.60-1.30); MAGNESIUM 1.7 mg/dL (1.80-2.40); POTASSIUM 3.6 mmol/L (3.5-5.1); TOTAL PROTEIN, SERUM 6.7 g/dL (6.4-8.2)
[2016-11-12 07:13] VITALS: BP 113/56
[2016-11-12 08:08] LABS: BAND NEUTROPHILS % (MANUAL) 1 % (1-5); EOSINOPHILS % (MANUAL) 5 % (1-6); LYMPHOCYTES % (MANUAL) 14 % (22-44); TOTAL CELLS COUNTED 100
[2016-11-12 08:14] LABS: RBC MORPHOLOGY COMMENT ABNORMAL R
[2016-11-12] MEDS: CHOLECALCIFEROL (VIT D3) 1,000 UNITS TABLET PO SCH (08:44)
[2016-11-12] MEDS: ASPIRIN 81 MG CHEWABLE TABLET PO SCH (08:44)
[2016-11-12] MEDS: VITAMIN B COMP/VIT C/FOLIC ACID CAPSULE PO SCH (08:44)
[2016-11-12] MEDS: PANTOPRAZOLE SODIUM 40 MG DR TABLET PO SCH (08:44)
[2016-11-12] MEDS: DEXTRAN 70 0.1%/HYPROMELL 0.3% 0.9 ML OPHTHALMIC SOLUTION [PF] OU SCH ×4 (08:44→20:18)
[2016-11-12] MEDS: SEVELAMER CARBONATE 800 MG TABLET PO SCH ×3 (08:45→18:14)
[2016-11-12] MEDS: VALSARTAN 40 MG TABLET PO SCH ×2 (09:00→20:31)
[2016-11-12] MEDS: CLOPIDOGREL BISULFATE 75 MG TABLET PO SCH (09:52)
[2016-11-12] MEDS: PRAVASTATIN SODIUM 40 MG TABLET PO SCH (09:53)
[2016-11-12] MEDS ORDERED: 0.9% SODIUM CHLORIDE 5 ML NEB SOLUTION NEB ONE (10:22)
[2016-11-12] MEDS: BUDESONIDE 0.5 MG/2 ML NEB SOLUTION NEB SCH ×2 (10:23→21:01)
[2016-11-12] MEDS: OXYGEN THERAPY IH SCH ×2 (10:24→20:18)
[2016-11-12 11:18] VITALS: BP 113/77
[2016-11-12 15:30] VITALS: BP 143/58
[2016-11-12] MEDS ORDERED: LIDOCAINE HCL/PF 1% 2 ML VIAL IM ONE (17:52)
[2016-11-12 19:51] VITALS: BP 96/51
[2016-11-12 22:07] VITALS: BP 120/61
[2016-11-13 00:08] VITALS: BP 124/60
[2016-11-13] MEDS: NITROGLYCERIN 2% (1 GM=INCH) PACKET TP SCH ×3 (00:21→16:00)
[2016-11-13 04:24] VITALS: BP 110/60
[2016-11-13] MEDS: METOPROLOL TARTRATE 25 MG TABLET PO SCH ×5 (06:00→21:00)
[2016-11-13 07:29] LABS: HEMATOCRIT 27.1 % (36-46); HEMOGLOBIN 8.6 g/dL (12.0-16.0); MEAN CORPUSCULAR HEMOGLOBIN 25.6 pg (26.0-34.0); MEAN CORPUSCULAR HGB CONC 31.6 G/dL (31.0-37.0); MEAN CORPUSCULAR VOLUME 81 fL (80-100); PLATELET COUNT (AUTO) 123 K/uL (150-450); RED BLOOD CELL COUNT(AUTO) 3.35 MIL/uL (4.00-5.20); RED CELL DISTRIBUTION WIDTH 20.5 % (11.5-14.5); WHITE BLOOD COUNT (AUTO) 4.5 K/uL (4.5-11.0)
[2016-11-13 07:45] LABS: ALBUMIN 2.6 g/dL (3.4-5.0); BILIRUBIN,TOTAL 0.4 mg/dL (0.1-1.0); CALCIUM, TOTAL 9.2 mg/dL (8.8-10.5); CREATININE 2.83 mg/dL (0.60-1.30); MAGNESIUM 1.7 mg/dL (1.80-2.40); POTASSIUM 3.8 mmol/L (3.5-5.1); TOTAL PROTEIN, SERUM 6.7 g/dL (6.4-8.2)
[2016-11-13] MEDS ORDERED: NITROGLYCERIN 2% (1 GM=INCH) PACKET TP SCH (08:00)
[2016-11-13 08:07] VITALS: BP 123/61
[2016-11-13] MEDS: OXYGEN THERAPY IH SCH ×2 (09:00→21:46)
[2016-11-13] MEDS: BUDESONIDE 0.5 MG/2 ML NEB SOLUTION NEB SCH ×2 (09:00→21:04)
[2016-11-13 09:30] LABS: BAND NEUTROPHILS % (MANUAL) 9 % (1-5); LYMPHOCYTES % (MANUAL) 17 % (22-44); TOTAL CELLS COUNTED 100
[2016-11-13 09:31] LABS: RBC MORPHOLOGY COMMENT ABNORMAL RBC MORPH
[2016-11-13] MEDS: SEVELAMER CARBONATE 800 MG TABLET PO SCH ×3 (09:37→18:30)
[2016-11-13] MEDS: PANTOPRAZOLE SODIUM 40 MG DR TABLET PO SCH (09:38)
[2016-11-13] MEDS: VITAMIN B COMP/VIT C/FOLIC ACID CAPSULE PO SCH (09:38)
[2016-11-13] MEDS: CHOLECALCIFEROL (VIT D3) 1,000 UNITS TABLET PO SCH (09:38)
[2016-11-13] MEDS: ASPIRIN 81 MG CHEWABLE TABLET PO SCH (09:38)
[2016-11-13] MEDS: CLOPIDOGREL BISULFATE 75 MG TABLET PO SCH (09:38)
[2016-11-13] MEDS: DEXTRAN 70 0.1%/HYPROMELL 0.3% 0.9 ML OPHTHALMIC SOLUTION [PF] OU SCH ×4 (09:39→21:41)
[2016-11-13] MEDS: PRAVASTATIN SODIUM 40 MG TABLET PO SCH (09:39)
[2016-11-13] MEDS: RANOLAZINE 500 MG SR TABLET PO SCH ×2 (09:40→21:39)
[2016-11-13] MEDS ORDERED: LACTULOSE 20 GM/30 ML SOLUTION UDCUP PO PRN (10:30)
[2016-11-13 11:23] VITALS: BP 99/49
[2016-11-13] MEDS ORDERED: HydrOXYzine HCL 25 MG TABLET PO PRN (12:00)
[2016-11-13 16:21] VITALS: BP 93/39
[2016-11-13 20:00] VITALS: BP 105/52
[2016-11-14] VITALS (8 sets, daily range): BP systolic 105–144; BP diastolic 48–66
[2016-11-14] MEDS: NITROGLYCERIN 2% (1 GM=INCH) PACKET TP SCH
[2016-11-14 06:20] LABS: HEMATOCRIT 25.7 % (36-46); HEMOGLOBIN 8.2 g/dL (12.0-16.0); MEAN CORPUSCULAR HEMOGLOBIN 25.2 pg (26.0-34.0); MEAN CORPUSCULAR HGB CONC 31.8 G/dL (31.0-37.0); MEAN CORPUSCULAR VOLUME 79 fL (80-100); PLATELET COUNT (AUTO) 130 K/uL (150-450); RED BLOOD CELL COUNT(AUTO) 3.24 MIL/uL (4.00-5.20); RED CELL DISTRIBUTION WIDTH 20.4 % (11.5-14.5)
[2016-11-14 06:36] LABS: ALBUMIN 2.5 g/dL (3.4-5.0); BILIRUBIN,TOTAL 0.4 mg/dL (0.1-1.0); CALCIUM, TOTAL 8.9 mg/dL (8.8-10.5); CREATININE 3.79 mg/dL (0.60-1.30); POTASSIUM 4.3 mmol/L (3.5-5.1); TOTAL PROTEIN, SERUM 6.3 g/dL (6.4-8.2)
[2016-11-14 07:24] LABS: BASOPHILS % (MANUAL) 1 % (0-2); EOSINOPHILS % (MANUAL) 4 % (1-6); LYMPHOCYTES % (MANUAL) 11 % (22-44); REACTIVE LYMPHOCYTES 3 % (0-0); TOTAL CELLS COUNTED 100
[2016-11-14] MEDS: BUDESONIDE 0.5 MG/2 ML NEB SOLUTION NEB SCH ×2 (08:36→20:24)
[2016-11-14] MEDS: OXYGEN THERAPY IH SCH ×2 (08:36→20:34)
[2016-11-14] MEDS: CHOLECALCIFEROL (VIT D3) 1,000 UNITS TABLET PO SCH (08:56)
[2016-11-14] MEDS: VITAMIN B COMP/VIT C/FOLIC ACID CAPSULE PO SCH (08:57)
[2016-11-14] MEDS: CLOPIDOGREL BISULFATE 75 MG TABLET PO SCH (08:57)
[2016-11-14] MEDS: ASPIRIN 81 MG CHEWABLE TABLET PO SCH (08:57)
[2016-11-14] MEDS: PRAVASTATIN SODIUM 40 MG TABLET PO SCH (08:58)
[2016-11-14] MEDS: PANTOPRAZOLE SODIUM 40 MG DR TABLET PO SCH (08:58)
[2016-11-14] MEDS: DEXTRAN 70 0.1%/HYPROMELL 0.3% 0.9 ML OPHTHALMIC SOLUTION [PF] OU SCH ×4 (08:59→20:52)
[2016-11-14] MEDS: RANOLAZINE 500 MG SR TABLET PO SCH ×2 (08:59→20:52)
[2016-11-14] MEDS: SEVELAMER CARBONATE 800 MG TABLET PO SCH ×3 (08:59→18:16)
[2016-11-14] MEDS: METOPROLOL TARTRATE 25 MG TABLET PO SCH ×2 (09:00→20:52)
[2016-11-14] MEDS: MORPHINE SULFATE 2 MG/ML SYRINGE IVP PRN (16:10)
[2016-11-14] MEDS: IPRATROPIUM BROMIDE 0.5 MG/2.5 ML NEB SOLUTION NEB PRN (23:29)
[2016-11-15 04:38] VITALS: BP 134/50
[2016-11-15 07:37] VITALS: BP 117/61
[2016-11-15 07:41] LABS: EOSINOPHILS % (AUTO) 3.5 % (1.0-6.0); HEMATOCRIT 27.4 % (36-46); HEMOGLOBIN 8.9 g/dL (12.0-16.0); LYMPHOCYTES # (AUTO) 0.6 K/uL (1.0-4.8); LYMPHOCYTES % (AUTO) 9.2 % (22.0-44.0); MEAN CORPUSCULAR HEMOGLOBIN 25.8 pg (26.0-34.0); MEAN CORPUSCULAR HGB CONC 32.6 G/dL (31.0-37.0); MEAN CORPUSCULAR VOLUME 79 fL (80-100); MONOCYTES # (AUTO) 0.2 K/uL (0.1-1.0); MONOCYTES % (AUTO) 2.6 % (2.0-9.0); NEUTROPHILS # (AUTO) 5.4 K/uL (1.8-7.7); NEUTROPHILS % (AUTO) 84.7 % (40.0-70.0); PLATELET COUNT (AUTO) 152 K/uL (150-450); RED BLOOD CELL COUNT(AUTO) 3.47 MIL/uL (4.00-5.20); RED CELL DISTRIBUTION WIDTH 20.4 % (11.5-14.5); WHITE BLOOD COUNT (AUTO) 6.4 K/uL (4.5-11.0)
[2016-11-15 08:01] LABS: ALBUMIN 2.6 g/dL (3.4-5.0); BILIRUBIN,TOTAL 0.5 mg/dL (0.1-1.0); CALCIUM, TOTAL 8.6 mg/dL (8.8-10.5); CREATININE 4.42 mg/dL (0.60-1.30); MAGNESIUM 2.3 mg/dL (1.80-2.40); POTASSIUM 5.1 mmol/L (3.5-5.1); TOTAL PROTEIN, SERUM 6.7 g/dL (6.4-8.2)
[2016-11-15] MEDS ORDERED: 0.9% SODIUM CHLORIDE 5 ML NEB SOLUTION NEB ONE (08:36)
[2016-11-15] MEDS: OXYGEN THERAPY IH SCH ×2 (09:09→20:24)
[2016-11-15] MEDS: SEVELAMER CARBONATE 800 MG TABLET PO SCH ×3 (09:14→18:00)
[2016-11-15] MEDS: PANTOPRAZOLE SODIUM 40 MG DR TABLET PO SCH (09:14)
[2016-11-15] MEDS: CHOLECALCIFEROL (VIT D3) 1,000 UNITS TABLET PO SCH (09:15)
[2016-11-15] MEDS: DEXTRAN 70 0.1%/HYPROMELL 0.3% 0.9 ML OPHTHALMIC SOLUTION [PF] OU SCH ×4 (09:15→20:39)
[2016-11-15] MEDS: METOPROLOL TARTRATE 25 MG TABLET PO SCH ×2 (09:15→20:39)
[2016-11-15] MEDS: VITAMIN B COMP/VIT C/FOLIC ACID CAPSULE PO SCH (09:15)
[2016-11-15] MEDS: ASPIRIN 81 MG CHEWABLE TABLET PO SCH (09:16)
[2016-11-15] MEDS: CLOPIDOGREL BISULFATE 75 MG TABLET PO SCH (09:16)
[2016-11-15] MEDS: PRAVASTATIN SODIUM 40 MG TABLET PO SCH (09:17)
[2016-11-15] MEDS: RANOLAZINE 500 MG SR TABLET PO SCH (09:18)
[2016-11-15] MEDS: IPRATROPIUM BROMIDE 0.5 MG/2.5 ML NEB SOLUTION NEB PRN ×2 (09:19→20:54)
[2016-11-15] MEDS: BUDESONIDE 0.5 MG/2 ML NEB SOLUTION NEB SCH ×2 (09:19→20:24)
[2016-11-15 09:36] LABS: RBC MORPHOLOGY COMMENT ABNORMAL RBC MORPH
[2016-11-15 11:44] VITALS: BP 134/74
[2016-11-15 11:52] LABS: GLUCOSE,POINT OF CARE 68 MG/DL (70-110)
[2016-11-15] MEDS: MORPHINE SULFATE 2 MG/ML SYRINGE IVP PRN ×2 (12:08→17:58)
[2016-11-15 16:00] VITALS: BP 133/61
[2016-11-15 20:01] VITALS: BP 152/73
[2016-11-15 23:42] VITALS: BP 133/65
[2016-11-16 05:02] VITALS: BP 139/68
[2016-11-16 07:07] LABS: HEMATOCRIT 28.3 % (36-46); HEMOGLOBIN 9.3 g/dL (12.0-16.0); MEAN CORPUSCULAR HGB CONC 32.9 G/dL (31.0-37.0); MEAN CORPUSCULAR VOLUME 79 fL (80-100); PLATELET COUNT (AUTO) 195 K/uL (150-450); RED BLOOD CELL COUNT(AUTO) 3.58 MIL/uL (4.00-5.20); RED CELL DISTRIBUTION WIDTH 20.3 % (11.5-14.5); WHITE BLOOD COUNT (AUTO) 9.1 K/uL (4.5-11.0)
[2016-11-16 07:23] LABS: ALBUMIN 2.7 g/dL (3.4-5.0); BILIRUBIN,TOTAL 0.6 mg/dL (0.1-1.0); CALCIUM, TOTAL 8.8 mg/dL (8.8-10.5); CREATININE 5.05 mg/dL (0.60-1.30); MAGNESIUM 2.5 mg/dL (1.80-2.40); POTASSIUM 5.6 mmol/L (3.5-5.1); TOTAL PROTEIN, SERUM 7.1 g/dL (6.4-8.2)
[2016-11-16] MEDS: SEVELAMER CARBONATE 800 MG TABLET PO SCH ×2 (08:00→12:00)
[2016-11-16 08:03] VITALS: BP 149/66
[2016-11-16] MEDS ORDERED: MORPHINE SULFATE 2 MG/ML SYRINGE IM ONE (08:30)
[2016-11-16] MEDS: MORPHINE SULFATE 2 MG/ML SYRINGE IVP PRN ×2 (08:47→14:25)
[2016-11-16] MEDS ORDERED: PRAVASTATIN SODIUM 20 MG TABLET PO SCH (09:00)
[2016-11-16] MEDS ORDERED: BUMETANIDE 0.25 MG/ML 10 ML VIAL IVP SCH (09:00)
[2016-11-16] MEDS: PANTOPRAZOLE SODIUM 40 MG DR TABLET PO SCH ×2 (09:00→14:25)
[2016-11-16] MEDS: VITAMIN B COMP/VIT C/FOLIC ACID CAPSULE PO SCH (09:00)
[2016-11-16] MEDS: CHOLECALCIFEROL (VIT D3) 1,000 UNITS TABLET PO SCH (09:00)
[2016-11-16] MEDS: ASPIRIN 81 MG CHEWABLE TABLET PO SCH (09:00)
[2016-11-16] MEDS: METOPROLOL TARTRATE 25 MG TABLET PO SCH (09:00)
[2016-11-16] MEDS: BUDESONIDE 0.5 MG/2 ML NEB SOLUTION NEB SCH (09:42)
[2016-11-16] MEDS: OXYGEN THERAPY IH SCH (09:42)
[2016-11-16 10:04] LABS: LYMPHOCYTES % (MANUAL) 8 % (22-44); RBC MORPHOLOGY COMMENT ABNORMAL R; TOTAL CELLS COUNTED 100
[2016-11-16] MEDS ORDERED: LORazepam 0.5 MG TABLET PO ONE (10:30)
[2016-11-16] MEDS: DEXTRAN 70 0.1%/HYPROMELL 0.3% 0.9 ML OPHTHALMIC SOLUTION [PF] OU SCH ×3 (10:44→16:16)
[2016-11-16 11:41] VITALS: BP 135/57
[2016-11-16] MEDS ORDERED: LORazepam 0.5 MG TABLET PO PRN (12:30)
[2016-11-16 15:48] VITALS: BP 136/66
== END 2016-11-16 17:00 | DRG 280 ==
LOC: EMS 12:39 → 5N 15:07 → 5S 11-05 22:40 → 5N 11-07 20:00 → ICU 11-09 09:40 → 5N 11-11 13:50
PROVIDERS: ADMIT Internal Medicine Geriatric Medicine; ATTEND Internal Medicine Geriatric Medicine
PROC: 0W9B3ZZ Drainage of Left Pleural Cavity, Percutaneous Approach (ICD-10-PCS; 2016-11-08)
PROC: 0W993ZZ Drainage of Right Pleural Cavity, Percutaneous Approach (ICD-10-PCS; 2016-11-08)
PROC: 5A1D60Z (ICD-10-PCS; 2016-11-09)
PROC: 4A023N7 Measurement of Cardiac Sampling and Pressure, Left Heart, Percutaneous Approach (ICD-10-PCS; principal; 2016-11-10)
PROC: B211YZZ Fluoroscopy of Multiple Coronary Arteries using Other Contrast (ICD-10-PCS; 2016-11-10)
PROC: B215YZZ Fluoroscopy of Left Heart using Other Contrast (ICD-10-PCS; 2016-11-10)
DX: I21.3 ST elevation (STEMI) myocardial infarction of unspecified site (principal); J96.90 Respiratory failure, unspecified, unspecified whether with hypoxia or hypercapnia; E43 Unspecified severe protein-calorie malnutrition; N17.9 Acute kidney failure, unspecified; J90 Pleural effusion, not elsewhere classified; I50.31 Acute diastolic (congestive) heart failure; E87.0 Hyperosmolality and hypernatremia; I49.5 Sick sinus syndrome; I95.3 Hypotension of hemodialysis; N18.6 End stage renal disease; I13.0 Hypertensive heart and chronic kidney disease with heart failure and stage 1 through stage 4 chronic kidney disease, or unspecified chronic kidney disease; E87.1 Hypo-osmolality and hyponatremia; E11.22 Type 2 diabetes mellitus with diabetic chronic kidney disease; J84.10 Pulmonary fibrosis, unspecified; D64.9 Anemia, unspecified; I25.119 Atherosclerotic heart disease of native coronary artery with unspecified angina pectoris; M06.9 Rheumatoid arthritis, unspecified; E03.9 Hypothyroidism, unspecified; E78.00 Pure hypercholesterolemia, unspecified; E78.5 Hyperlipidemia, unspecified; E83.39 Other disorders of phosphorus metabolism; E87.5 Hyperkalemia; H40.9 Unspecified glaucoma; I25.2 Old myocardial infarction; I45.10 Unspecified right bundle-branch block; M10.9 Gout, unspecified; J44.9 Chronic obstructive pulmonary disease, unspecified; R62.7 Adult failure to thrive; J45.909 Unspecified asthma, uncomplicated; Z66 Do not resuscitate; Z95.0 Presence of cardiac pacemaker; Z95.1 Presence of aortocoronary bypass graft; Z99.2 Dependence on renal dialysis; Z86.73 Personal history of transient ischemic attack (TIA), and cerebral infarction without residual deficits; Z98.891 History of uterine scar from previous surgery; Z90.49 Acquired absence of other specified parts of digestive tract; Z88.0 Allergy status to penicillin; Z79.899 Other long term (current) drug therapy; Z68.24 Body mass index [BMI] 24.0-24.9, adult; Z79.1 Long term (current) use of non-steroidal anti-inflammatories (NSAID); Z79.891 Long term (current) use of opiate analgesic; Z79.84 Long term (current) use of oral hypoglycemic drugs; Z87.440 Personal history of urinary (tract) infections; Z98.61 Coronary angioplasty status
CPT/HCPCS: 32555; 71250; 76942; 82306; 82570; 82607; 82746; 82962; 83036; 83615; 83735; 83935; 83970; 84100; 84133; 84155; 84295; 84300; 84439; 84443; 86709; 87081; 87340; 88108; 90935; 93005; 93306; 94640; 94660; 99285; J0885; J1644; J1940; J2270; J3490; J7050; P9046; Q0162; Q9967